=== PATIENT | female | born 1990 | race African-American/Black ===

== ENCOUNTER 2016-10-30 08:14 | Emergency (ER) | payer MEDICAID, OTHER ==
[~2016-10-30] VITALS: Ht 182.9 cm; Wt 131.0 kg
[2016-10-30 09:12] LABS: GLUCOSE URINE NEGATIVE (NEGATIVE); KETONES URINE TRACE (NEGATIVE); LEUKOCYTE ESTERASE URINE 3+ (NEGATIVE); NITRITE URINE NEGATIVE (NEGATIVE); OCCULT BLOOD URINE 2+ (NEGATIVE); PH URINE 6.5 (4.5-8.0); PROTEIN URINE 3+ (NEGATIVE); SPECIFIC GRAVITY URINE 1.025 (1.005-1.030)
[2016-10-30] MEDS ORDERED: KETOROLAC 60MG/2ML VIAL IM ONE (09:15)
[2016-10-30 09:23] LABS: CLARITY URINE TURBID (CLEAR); COLOR URINE YELLOW (YELLOW)
[2016-10-30 09:24] LABS: WBC URINE TNTC /hpf (0-2)
[2016-10-30 09:26] LABS: SQUAMOUS EPITHELIAL CELL URINE 1+ /lpf (RARE/1+)
[2016-10-30 09:27] LABS: BACTERIA URINE TRACE
[2016-10-30 09:37] LABS: *AMPHETAMINES SCREEN URINE NEGATIVE (NEGATIVE); *BARBITURATES SCREEN URINE NEGATIVE (NEGATIVE); *BENZODIAZEPINES SCREEN URINE NEGATIVE (NEGATIVE); *COCAINE SCREEN URINE NEGATIVE (NEGATIVE); ECSTASY MDMA SCREEN URINE NEGATIVE (NEGATIVE); METHADONE URINE SCREEN NEGATIVE (NEGATIVE); OPIATES URINE SCREEN NEGATIVE (NEGATIVE); PHENCYCLIDINE URINE SCREEN NEGATIVE (NEGATIVE)
[2016-10-30] MEDS ORDERED: CEFTRIAXONE SODIUM 1 G/VIAL IM ONE (10:00)
[2016-10-30] MEDS ORDERED: LIDOCAINE HCL 1% 20ML VIAL (Pyxis) INJ MC ONE (10:00)
[2016-10-30 10:11] LABS: CANNABINOID URINE SCREEN PRESUMTIVE POSITIVE (NEGATIVE)
[2016-10-30 11:01] VITALS: BP 124/67
== END 2016-10-30 11:02 | disposition home or self-care (01) ==
LOC: ER 09:10
DX: M54.5 Low back pain (principal); N39.0 Urinary tract infection, site not specified; E66.01 Morbid (severe) obesity due to excess calories; H10.32 Unspecified acute conjunctivitis, left eye; Z68.38 Body mass index [BMI] 38.0-38.9, adult; F17.200 Nicotine dependence, unspecified, uncomplicated; G89.29 Other chronic pain
CPT/HCPCS: 80305; 81001; 81025; 96372; 99284; J0696; J1885; J3490

== ENCOUNTER 2016-11-07 02:24 | Emergency (ER) | payer OTHER ==
[~2016-11-07] VITALS: Ht 182.9 cm; Wt 129.0 kg
[2016-11-07 04:00] VITALS: BP 104/75
[2016-11-07 06:07] LABS: CLARITY URINE CLEAR (CLEAR); COLOR URINE ORANGE (YELLOW); GLUCOSE URINE NEGATIVE (NEGATIVE); KETONES URINE NEGATIVE (NEGATIVE); LEUKOCYTE ESTERASE URINE 3+ (NEGATIVE); NITRITE URINE POSITIVE (NEGATIVE); OCCULT BLOOD URINE NEGATIVE (NEGATIVE); PROTEIN URINE 1+ (NEGATIVE); SPECIFIC GRAVITY URINE 1.024 (1.005-1.030)
[2016-11-07 06:30] LABS: SQUAMOUS EPITHELIAL CELL URINE 1+ /lpf (RARE/1+)
[2016-11-07 06:34] LABS: BACTERIA URINE 2+
[2016-11-07] MEDS ORDERED: ACETAMINOPHEN 650MG/20.3ML UDC PO ONE (07:00)
== END 2016-11-07 07:06 | disposition home or self-care (01) ==
LOC: ER 03:52
DX: N76.0 Acute vaginitis (principal); N89.8 Other specified noninflammatory disorders of vagina; M54.5 Low back pain; E66.9 Obesity, unspecified; F17.200 Nicotine dependence, unspecified, uncomplicated
CPT/HCPCS: 81001; 81025; 99283; Z7610

== ENCOUNTER 2016-12-17 13:12 | Emergency (ER) | payer OTHER ==
[~2016-12-17] VITALS: Ht 182.9 cm; Wt 127.0 kg
[2016-12-17] MEDS ORDERED: ACETAMINOPHEN WITH CODEINE 300/30MG TABLET PO ONE (14:45)
[2016-12-17 14:49] VITALS: BP 158/71
== END 2016-12-17 15:34 | disposition home or self-care (01) ==
LOC: ER 13:43
DX: H10.9 Unspecified conjunctivitis (principal)
CPT/HCPCS: 99283

== ENCOUNTER 2017-02-05 01:14 | Emergency (ER) | payer OTHER ==
[~2017-02-05] VITALS: Ht 182.9 cm; Wt 127.0 kg
[2017-02-05] MEDS ORDERED: ACETAMINOPHEN 325MG TABLET PO STA (10:43)
[2017-02-05 11:18] LABS: CHLORIDE 105 mEq/L (98-107)
[2017-02-05 11:19] LABS: BASOPHILS % 0.7 % (0.0-2.0); EOSINOPHILS % 1.9 % (0.0-5.0); HEMATOCRIT. 34.6 % (36.0-48.0); HEMOGLOBIN. 10.9 g/dL (12.0-16.0); LYMPHOCYTES % 25.1 % (20.0-50.0); MEAN CORPUSCULAR HEMOGLOBIN 22.9 pg (28.0-32.0); MEAN CORPUSCULAR VOLUME 72.3 fL (81.0-99.0); MEAN PLATELET VOLUME 9.2 fl (7.4-10.4); MONOCYTES % 4.2 % (2.0-8.0); NEUTROPHILS % 68.1 % (40.0-76.0); PLATELET 251 x1000/uL (130-400); RED BLOOD CELL COUNT 4.78 mill/uL (4.2-5.4); RED CELL DISTRIBUTION WIDTH 17.8 % (11.6-14.6)
[2017-02-05 11:20] LABS: PROTHROMBIN TIME 10.7 sec
[2017-02-05 11:26] LABS: CARBON DIOXIDE 29 mEq/L (21-32)
[2017-02-05 13:22] VITALS: BP 135/61
== END 2017-02-05 13:25 | disposition home or self-care (01) ==
LOC: ER 01:14
DX: K80.00 Calculus of gallbladder with acute cholecystitis without obstruction (principal); F17.200 Nicotine dependence, unspecified, uncomplicated; Z98.890 Other specified postprocedural states
CPT/HCPCS: 36415; 76705; 80053; 83690; 85025; 85610; 99285; Z7610

== ENCOUNTER 2017-02-11 22:51 | Emergency (ER) | payer OTHER ==
[~2017-02-11] VITALS: Ht 177.8 cm; Wt 136.0 kg
[2017-02-12] MEDS ORDERED: KETOROLAC 60MG/2ML VIAL IM ONE
[2017-02-12] MEDS ORDERED: PENICILLIN G BENZATHINE 1,200,000 UNITS/2ML SYR IM ONE
[2017-02-12 01:11] VITALS: BP 142/85
== END 2017-02-12 01:19 | disposition home or self-care (01) ==
LOC: ER 22:51
DX: J02.9 Acute pharyngitis, unspecified (principal); F17.200 Nicotine dependence, unspecified, uncomplicated; F12.10 Cannabis abuse, uncomplicated
CPT/HCPCS: 99283; J0561; J1885

== ENCOUNTER 2017-11-21 12:43 | Observation (INO) | payer OTHER ==
[~2017-11-21] VITALS: Ht 182.9 cm; Wt 158.8 kg
[2017-11-21] MEDS ORDERED: FERR325T6 PO (13:10)
[2017-11-21] MEDS ORDERED: PNV1TABL76 PO (13:10)
[2017-11-21] MEDS ORDERED: CALC-861 PO (13:11)
[2017-11-21] MEDS ORDERED: LACTATED RINGERS 1,000 ML IV SCH (14:00)
[2017-11-21 14:38] LABS: CLARITY URINE CLEAR (CLEAR); COLOR URINE YELLOW (YELLOW); KETONES URINE NEGATIVE (NEGATIVE); LEUKOCYTE ESTERASE URINE TRACE (NEGATIVE); NITRITE URINE NEGATIVE (NEGATIVE); OCCULT BLOOD URINE NEGATIVE (NEGATIVE); PROTEIN URINE NEGATIVE (NEGATIVE); SPECIFIC GRAVITY URINE 1.019 (1.005-1.030)
[2017-11-21 14:38] LABS: BASOPHILS % 0.7 % (0.0-2.0); LYMPHOCYTES % 17.7 % (20.0-50.0); MEAN CORPUSCULAR HEMOGLOBIN 24.7 pg (28.0-32.0); MEAN CORPUSCULAR VOLUME 76.3 fL (81.0-99.0); MEAN PLATELET VOLUME 9.3 fl (7.4-10.4); MONOCYTES % 3.7 % (2.0-8.0); NEUTROPHILS % 76.9 % (40.0-76.0); PLATELET 266 x1000/uL (130-400); RED BLOOD CELL COUNT 4.06 mill/uL (4.2-5.4); RED CELL DISTRIBUTION WIDTH 17.6 % (11.6-14.6)
[2017-11-21 14:51] LABS: D-DIMER 0.46 mg/L FEU (<0.50); PARTIAL THROMBOPLASTIN TIME 27.2 sec (23.4-31.0)
[2017-11-21 15:07] LABS: CHLORIDE 104 mEq/L (98-107)
[2017-11-21 15:12] LABS: CANNABINOID URINE SCREEN NEGATIVE (NEGATIVE); METHADONE URINE SCREEN NEGATIVE (NEGATIVE); OPIATES URINE SCREEN NEGATIVE (NEGATIVE); PHENCYCLIDINE URINE SCREEN NEGATIVE (NEGATIVE)
[2017-11-21 15:13] LABS: *BARBITURATES SCREEN URINE NEGATIVE (NEGATIVE); *BENZODIAZEPINES SCREEN URINE NEGATIVE (NEGATIVE); *COCAINE SCREEN URINE NEGATIVE (NEGATIVE)
[2017-11-21 15:17] LABS: *AMPHETAMINES SCREEN URINE PRESUMTIVE POSITIVE (NEGATIVE)
[2017-11-21] MEDS ORDERED: ACETAMINOPHEN 500MG TABLET PO NR (15:20)
[2017-11-21 15:42] LABS: RUBELLA IGG 87.7 IU/mL (4.99-10)
[2017-11-21 15:43] LABS: HEPATITIS B SURFACE ANTIGEN NEGATIVE
[2017-11-21] MEDS ORDERED: LABETALOL HCL 200MG TABLET PO SCH (16:00)
== END 2017-11-21 16:55 | disposition home or self-care (01) ==
LOC: EDSTATUS 12:46 → L&D 12:56
PROVIDERS: ADMIT Specialist; ATTEND Specialist
DX: O26.893 Other specified pregnancy related conditions, third trimester (principal); R10.30 Lower abdominal pain, unspecified; Z3A.30 30 weeks gestation of pregnancy
CPT/HCPCS: 36415; 76805; 76818; 80053; 80305; 80307; 81003; 84550; 85025; 85379; 85384; 85610; 85730; 86592; 86703; 86762; 86850; 86900; 86901; 87340; 99281; G0378; J7120; 96360; 96361

== ENCOUNTER 2018-03-17 06:04 | Emergency (ER) | payer OTHER ==
[~2018-03-17] VITALS: Ht 182.9 cm; Wt 143.0 kg
[~2018-03-17 06:04] MED LIST: CALC-861 PO; FERR325T6 PO; PNV1TABL76 PO
[2018-03-17] MEDS ORDERED: SODIUM CHLORIDE 0.9% 1,000 ML IV ONE (07:35)
[2018-03-17] MEDS ORDERED: KETOROLAC 30MG/ML VIAL IV STA (07:35)
[2018-03-17 09:59] LABS: BASOPHILS % 0.1 % (0.0-2.0); HEMATOCRIT. 30.4 % (36.0-48.0); HEMOGLOBIN. 9.6 g/dL (12.0-16.0); LYMPHOCYTES % 33.1 % (20.0-50.0); MEAN CORPUSCULAR VOLUME 75.6 fL (81.0-99.0); MEAN PLATELET VOLUME 8.8 fl (7.4-10.4); MONOCYTES % 4.9 % (2.0-8.0); NEUTROPHILS % 58.9 % (40.0-76.0); PLATELET 292 x1000/uL (130-400); RED BLOOD CELL COUNT 4.02 mill/uL (4.2-5.4); RED CELL DISTRIBUTION WIDTH 18.5 % (11.6-14.6)
[2018-03-17 10:03] LABS: CHLORIDE 107 mEq/L (98-107)
[2018-03-17 10:06] LABS: PROTHROMBIN TIME 10.7 sec (9.4-11.6)
[2018-03-17 10:10] LABS: ETHANOL BLOOD < 10 mg/dL
[2018-03-17 10:20] LABS: HCG SCREEN NEGATIVE
[2018-03-17 13:13] LABS: CLARITY URINE CLEAR (CLEAR); COLOR URINE YELLOW (YELLOW); KETONES URINE TRACE (NEGATIVE); LEUKOCYTE ESTERASE URINE NEGATIVE (NEGATIVE); NITRITE URINE NEGATIVE (NEGATIVE); OCCULT BLOOD URINE NEGATIVE (NEGATIVE); PROTEIN URINE NEGATIVE (NEGATIVE); UROBILINOGEN URINE 0.2 E.U./dL (0.2-1.0)
[2018-03-17 13:30] VITALS: BP 141/74
[2018-03-17 15:46] LABS: *BENZODIAZEPINES SCREEN URINE NEGATIVE (NEGATIVE); *COCAINE SCREEN URINE NEGATIVE (NEGATIVE)
[2018-03-17 15:47] LABS: CANNABINOID URINE SCREEN NEGATIVE (NEGATIVE); METHADONE URINE SCREEN NEGATIVE (NEGATIVE); OPIATES URINE SCREEN NEGATIVE (NEGATIVE); PHENCYCLIDINE URINE SCREEN NEGATIVE (NEGATIVE)
[2018-03-17 15:48] LABS: *BARBITURATES SCREEN URINE NEGATIVE (NEGATIVE)
[2018-03-17 15:55] LABS: *AMPHETAMINES SCREEN URINE PRESUMTIVE POSITIVE (NEGATIVE)
[2018-03-20 07:16] LABS: CHLAMYDIA TRACHOMATIS NAA Negative (Negative); NEISSERIA GONORRHOEAE NAA Negative (Negative)
== END 2018-03-17 15:06 | disposition home or self-care (01) ==
LOC: ER 07:37
DX: R10.30 Lower abdominal pain, unspecified (principal); N20.0 Calculus of kidney; M54.5 Low back pain; F17.200 Nicotine dependence, unspecified, uncomplicated; Z98.890 Other specified postprocedural states; Z79.899 Other long term (current) drug therapy
CPT/HCPCS: 36415; 74176; 76830; 76856; 80053; 80305; 81003; 83690; 84703; 85025; 85610; 87210; 87491; 87591; 99285; G0482; J7030; Z7610

== ENCOUNTER 2018-03-17 14:20 | Emergency (ER) | payer OTHER ==
[~2018-03-17] VITALS: Ht 205.7 cm; Wt 143.0 kg
[2018-03-17 14:33] VITALS: BP 131/74
== END 2018-03-17 20:32 | disposition left against medical advice (07) ==
LOC: ER 14:54
DX: R10.30 Lower abdominal pain, unspecified (principal); K08.89 Other specified disorders of teeth and supporting structures; M54.9 Dorsalgia, unspecified; F17.200 Nicotine dependence, unspecified, uncomplicated; Z98.890 Other specified postprocedural states
CPT/HCPCS: 99281

== ENCOUNTER 2018-12-13 11:53 | Emergency (ER) | payer OTHER ==
[~2018-12-13] VITALS: Ht 182.9 cm; Wt 127.0 kg
[2018-12-13 16:24] LABS: CLARITY URINE CLOUDY (CLEAR); COLOR URINE YELLOW (YELLOW); KETONES URINE NEGATIVE (NEGATIVE); LEUKOCYTE ESTERASE URINE 3+ (NEGATIVE); NITRITE URINE NEGATIVE (NEGATIVE); OCCULT BLOOD URINE NEGATIVE (NEGATIVE); PH URINE 6.5 (4.5-8.0); PROTEIN URINE NEGATIVE (NEGATIVE); SPECIFIC GRAVITY URINE 1.019 (1.005-1.030); UROBILINOGEN URINE 0.2 E.U./dL (0.2-1.0)
[2018-12-13] MEDS: KETOROLAC 60MG/2ML VIAL IM ONE (16:26)
[2018-12-13 16:48] LABS: *BARBITURATES SCREEN URINE NEGATIVE (NEGATIVE)
[2018-12-13 16:49] LABS: *AMPHETAMINES SCREEN URINE NEGATIVE (NEGATIVE); *BENZODIAZEPINES SCREEN URINE NEGATIVE (NEGATIVE); *COCAINE SCREEN URINE NEGATIVE (NEGATIVE); METHADONE URINE SCREEN NEGATIVE (NEGATIVE); OPIATES URINE SCREEN NEGATIVE (NEGATIVE); PHENCYCLIDINE URINE SCREEN NEGATIVE (NEGATIVE)
[2018-12-13 16:50] LABS: CANNABINOID URINE SCREEN NEGATIVE (NEGATIVE)
[2018-12-13 17:43] VITALS: BP 138/72
== END 2018-12-13 17:45 | disposition home or self-care (01) ==
LOC: ER 11:53
DX: R10.2 Pelvic and perineal pain (principal); N83.209 Unspecified ovarian cyst, unspecified side; N39.0 Urinary tract infection, site not specified; E66.8 Other obesity; F17.200 Nicotine dependence, unspecified, uncomplicated; Z98.890 Other specified postprocedural states; Z79.899 Other long term (current) drug therapy
CPT/HCPCS: 76830; 76856; 80305; 81003; 81025; 96372; 99284; J1885

== ENCOUNTER 2020-12-23 19:16 | Emergency (ER) | payer MEDICAID, OTHER ==
[~2020-12-23] VITALS: Ht 182.9 cm; Wt 127.0 kg
[2020-12-23] MEDS ORDERED: KETOROLAC 30MG/ML VIAL IV ONE (20:00)
[2020-12-23] MEDS ORDERED: ACETAMINOPHEN 325MG TABLET PO ONE (20:00)
[2020-12-23] MEDS ORDERED: DEXAMETHASONE 10 MG/ML VIAL IV ONE (20:00)
[2020-12-23 20:39] VITALS: BP 160/80
[2020-12-23] MEDS ORDERED: PENI500T MT ×2 (21:06)
[2020-12-23] MEDS ORDERED: PENICILLIN V POTASSIUM 250MG TABLET PO SCH (21:15)
[2020-12-23] MEDS ORDERED: PENICILLIN G BENZATHINE 2,400,000 UNITS/4ML SYR IM ONE (21:30)
== END 2020-12-23 22:43 | disposition home or self-care (01) ==
LOC: ER 19:16
DX: J02.0 Streptococcal pharyngitis (principal); R03.0 Elevated blood-pressure reading, without diagnosis of hypertension
CPT/HCPCS: 87430; 96372; 96374; 96375; 99284; J0561; J1100; J1885

== ENCOUNTER 2022-01-16 18:36 | Emergency (ER) | payer MEDICAID ==
[~2022-01-16] VITALS: Ht 182.9 cm; Wt 127.0 kg
[~2022-01-16 18:36] MED LIST changes: +PENI500T MT
[2022-01-16 18:41] VITALS: BP 196/136
[2022-01-17] MEDS ORDERED: AMOX1TAB16 PO (08:21)
[2022-01-17] MEDS ORDERED: TOPUD PO (08:21)
== END 2022-01-16 23:35 | disposition left against medical advice (07) ==
LOC: ER 18:36
DX: Z53.21 Procedure and treatment not carried out due to patient leaving prior to being seen by health care provider (principal)

== ENCOUNTER 2022-01-17 04:37 | Emergency (ER) | payer MEDICAID ==
[~2022-01-17] VITALS: Ht 172.7 cm; Wt 370.0 kg
[2022-01-17] MEDS ORDERED: KETOROLAC 30MG/ML VIAL IV STA (06:10)
[2022-01-17] MEDS ORDERED: SODIUM CHLORIDE 0.9% 1,000 ML IV ONE (06:15)
[2022-01-17 07:02] LABS: BASOPHILS % 0.1 % (0.0-2.0); EOSINOPHILS % 0.1 % (0.0-5.0); HEMATOCRIT. 26.5 % (36.0-48.0); HEMOGLOBIN. 7.4 g/dL (12.0-16.0); LYMPHOCYTES % 10.1 % (20.0-50.0); MEAN CORPUSCULAR VOLUME 53.6 fL (81.0-99.0); MEAN PLATELET VOLUME 9.6 fl (7.4-10.4); NEUTROPHILS % 84.7 % (40.0-76.0); PLATELET 404 x1000/uL (130-400); RED BLOOD CELL COUNT 4.95 mill/uL (4.2-5.4); RED CELL DISTRIBUTION WIDTH 21.2 % (11.6-14.6)
[2022-01-17 07:10] LABS: CHLORIDE 105 mEq/L (98-107)
[2022-01-17 07:12] LABS: HCG SCREEN NEGATIVE
[2022-01-17] MEDS ORDERED: DEXAMETHASONE 10 MG/ML VIAL IV ONE (08:15)
[2022-01-17] MEDS ORDERED: TOPUD PO (08:21)
[2022-01-17] MEDS ORDERED: AMOX1TAB16 PO (08:21)
[2022-01-17 09:01] LABS: PLATELET ESTIMATE SLIGHTLY INCREASED
[2022-01-17 10:23] VITALS: BP 122/63
== END 2022-01-17 10:24 | disposition home or self-care (01) ==
LOC: ER 04:37
DX: J02.0 Streptococcal pharyngitis (principal); Z20.822 Contact with and (suspected) exposure to COVID-19; D50.9 Iron deficiency anemia, unspecified
CPT/HCPCS: 36415; 70490; 80053; 84703; 85025; 87426; 87430; 96361; 96374; 96375; 99284; C9803; J1100; J1885; J7030

== ENCOUNTER 2022-04-21 02:29 | Emergency (ER) | payer MEDICAID ==
[~2022-04-21] VITALS: Ht 170.2 cm; Wt 91.0 kg
[~2022-04-21 02:29] MED LIST changes: +AMOX1TAB16 PO; +TOPUD PO
[2022-04-21 02:32] VITALS: BP 130/78
[2022-04-21] MEDS ORDERED: METHYLPREDNISOLONE SOD SUCC 125 MG/2 ML VIAL IM STA (04:36)
[2022-04-21] MEDS ORDERED: KETOROLAC 60MG/2ML VIAL IM STA (04:36)
[2022-04-21] MEDS ORDERED: PENICILLIN G BENZATHINE 1,200,000 UNITS/2ML SYR IM STA (04:36)
[2022-04-21 05:55] LABS: HCG SCREEN NEGATIVE
[2022-04-21] MEDS ORDERED: AMOX1TAB16 PO (06:04)
[2022-04-21] MEDS ORDERED: IBUP-2029 PO (06:04)
== END 2022-04-21 06:15 | disposition home or self-care (01) ==
LOC: ER 02:56
DX: J02.9 Acute pharyngitis, unspecified (principal); Z98.890 Other specified postprocedural states; R11.10 Vomiting, unspecified
CPT/HCPCS: 81025; 84703; 87070; 87430; 96372; 99284; J0561; J1885; J2930

== ENCOUNTER 2022-05-24 09:34 | Emergency (ER) | payer MEDICAID ==
[~2022-05-24] VITALS: Ht 177.8 cm; Wt 90.0 kg
[~2022-05-24 09:34] MED LIST changes: +IBUP-2029 PO
[2022-05-24 09:50] VITALS: BP 144/52
[2022-05-24] MEDS ORDERED: ACETAMINOPHEN 325MG TABLET PO ONE (12:45)
[2022-05-24 12:57] LABS: CLARITY URINE CLOUDY (CLEAR); COLOR URINE YELLOW (YELLOW); KETONES URINE NEGATIVE (NEGATIVE); LEUKOCYTE ESTERASE URINE 3+ (NEGATIVE); NITRITE URINE POSITIVE (NEGATIVE); OCCULT BLOOD URINE 1+ (NEGATIVE); PH URINE 8.5 (4.5-8.0); PROTEIN URINE 1+ (NEGATIVE); SPECIFIC GRAVITY URINE 1.018 (1.005-1.030)
[2022-05-24] MEDS ORDERED: CEPH500T MT (14:27)
[2022-05-24] MEDS ORDERED: METR-167 MT (14:27)
[2022-05-24] MEDS ORDERED: DIPH25CA83 MT (14:27)
[2022-05-24] MEDS ORDERED: DIF15 MT (14:32)
[2022-05-24] MEDS ORDERED: MICO14CR6 TP (14:32)
[2022-05-26 08:06] LABS: NEISSERIA GONORRHOEAE NAA Negative (Negative)
[2022-05-27] MEDS ORDERED: DIF15 MT (10:36)
[2022-05-27] MEDS ORDERED: LEVO750T68 MT (10:36)
== END 2022-05-24 15:31 | disposition home or self-care (01) ==
LOC: ER 09:34
DX: N39.0 Urinary tract infection, site not specified (principal); Z79.899 Other long term (current) drug therapy
CPT/HCPCS: 81003; 81025; 82962; 87077; 87086; 87186; 87210; 87491; 87591; 99284; Z7610; 99283

== ENCOUNTER 2022-08-16 06:32 | Emergency (ER) | payer MEDICAID ==
[~2022-08-16] VITALS: Ht 182.9 cm; Wt 137.0 kg
[~2022-08-16 06:32] MED LIST changes: +CEPH500T MT; +DIF15 MT; +DIPH25CA83 MT; +LEVO750T68 MT; +METR-167 MT; +MICO14CR6 TP
[2022-08-16] MEDS ORDERED: SILVER SULFADIAZINE 1% CREAM 50GM TOP STA (07:56)
[2022-08-16] MEDS ORDERED: HYDROCODONE/ACETAMINOPHEN 7.5/325MG TABLET PO ONE (08:00)
[2022-08-16] MEDS ORDERED: TETANUS, DIPHTHERIA, PERTUSSIS VAC/PF 0.5ML (>10YR OLD) IM ONE (08:00)
[2022-08-16 08:42] VITALS: BP 184/90
[2022-08-16] MEDS ORDERED: IBUP-2030 MT (09:46)
[2022-08-16] MEDS ORDERED: SILV50CR31 TP (09:46)
[2022-08-16] MEDS ORDERED: HYDR-4001 MT (09:46)
== END 2022-08-16 10:36 | disposition home or self-care (01) ==
LOC: ER 06:32
DX: T23.121A Burn of first degree of single right finger (nail) except thumb, initial encounter (principal); T31.0 Burns involving less than 10% of body surface; T79.9XXA Unspecified early complication of trauma, initial encounter; Z98.890 Other specified postprocedural states; Z79.899 Other long term (current) drug therapy; X08.8XXA Exposure to other specified smoke, fire and flames, initial encounter; Y93.89 Activity, other specified; Y92.89 Other specified places as the place of occurrence of the external cause; Y99.8 Other external cause status
CPT/HCPCS: 16000; 90471; 90715; 99283; Z7610

== ENCOUNTER 2022-08-20 17:04 | Emergency (ER) | payer MEDICAID ==
[~2022-08-20] VITALS: Ht 182.9 cm; Wt 136.0 kg
[~2022-08-20 17:04] MED LIST changes: +HYDR-4001 MT; +IBUP-2030 MT; +SILV50CR31 TP
[2022-08-20] MEDS: BACITRACIN ZINC OINT UDPKT TOP ONE (18:58)
[2022-08-20] MEDS: LIDOCAINE HCL/PF 1% 10 MG/ML 5ML VIAL INFIL ONE (18:58)
[2022-08-20] MEDS ORDERED: SULF1TAB48 MT (20:38)
[2022-08-20] MEDS: HYDROCODONE/ACETAMINOPHEN 5/325MG TABLET PO ONE (20:55)
[2022-08-20] MEDS: IBUPROFEN 600MG TABLET PO ONE (20:55)
[2022-08-20 21:13] VITALS: BP 131/64
[2022-08-20] MEDS ORDERED: IBUP-2029 MT (21:45)
== END 2022-08-20 21:14 | disposition home or self-care (01) ==
LOC: ER 17:04
DX: L03.011 Cellulitis of right finger (principal)
CPT/HCPCS: 10060; 99283; J3490

== ENCOUNTER 2022-08-25 15:36 | Emergency (ER) | payer MEDICAID ==
[~2022-08-25] VITALS: Ht 182.9 cm; Wt 137.0 kg
[~2022-08-25 15:36] MED LIST changes: +IBUP-2029 MT; +SULF1TAB48 MT
[2022-08-25 15:47] VITALS: BP 171/62
[2022-08-25] MEDS ORDERED: IBUPROFEN 600MG TABLET PO ONE (18:00)
== END 2022-08-25 18:46 | disposition home or self-care (01) ==
LOC: ER 15:36
DX: L03.011 Cellulitis of right finger (principal); Z98.890 Other specified postprocedural states; Z79.899 Other long term (current) drug therapy
CPT/HCPCS: 99281

== ENCOUNTER 2023-11-07 20:15 | Emergency (ER) | payer MEDICAID ==
[~2023-11-07] VITALS: Ht 182.9 cm; Wt 127.0 kg
[2023-11-07 20:23] VITALS: PULSE 110
[2023-11-07 20:31] VITALS: BP 160/98; RESP 18; TEMP 97.9; O2SAT 100
[2023-11-07] MEDS: BACITRACIN ZINC OINT UDPKT TOP ONE (20:45)
[2023-11-07] MEDS: LIDOCAINE HCL/PF 1% 10 MG/ML 5ML VIAL INFIL ONE (22:26)
[2023-11-07] MEDS ORDERED: AMOX1TAB16 MT (22:39)
[2023-11-07] MEDS ORDERED: TOPUD MT (23:33)
[2023-11-07] MEDS ORDERED: IBUP-2028 MT (23:33)
[2023-11-07] MEDS: HYDROCODONE/ACETAMINOPHEN 5/325MG TABLET PO ONE (23:40)
== END 2023-11-07 23:57 | disposition home or self-care (01) ==
LOC: ER 20:15
DX: L03.012 Cellulitis of left finger (principal); Z98.890 Other specified postprocedural states; Z79.899 Other long term (current) drug therapy
CPT/HCPCS: 99283; Z7610

== ENCOUNTER 2024-04-14 15:32 | Emergency (ER) | payer MEDICAID ==
[~2024-04-14] VITALS: Ht 185.4 cm; Wt 127.0 kg
[~2024-04-14 15:32] MED LIST changes: +AMOX1TAB16 MT; +IBUP-2028 MT; +TOPUD MT
[2024-04-14 15:36] VITALS: BP 152/96; PULSE 100; RESP 18; O2SAT 98
[2024-04-14] MEDS: TETRACAINE 0.5% OPHTH DROPS 4ML BOTHEYE ONE (21:50)
[2024-04-14] MEDS: FLUORESCEIN SODIUM 1MG/STRIP BOTHEYE ONE (21:50)
[2024-04-14 22:50] VITALS: TEMP 97.6
[2024-04-14] MEDS: ACETAMINOPHEN 325MG TABLET PO ONE (22:50)
[2024-04-14 23:40] LABS: CHLORIDE 106 mEq/L (98-107); POTASSIUM 4.2 mEq/L (3.5-5.1); SODIUM 138 mEq/L (136-145)
[2024-04-14 23:41] LABS: CALCIUM 9.3 mg/dL (8.7-10.4); CARBON DIOXIDE 28 mEq/L (21-32)
[2024-04-14 23:46] LABS: CREATININE 0.8 mg/dL (0.6-1.0); GLUCOSE 83 mg/dL (70-105); UREA NITROGEN BLOOD 8 mg/dL (9-23)
[2024-04-14 23:48] LABS: BASOPHILS % 0.3 % (0.0-2.0); HEMOGLOBIN. 9.5 g/dL (12.0-16.0); LYMPHOCYTES % 25.3 % (20.0-50.0); MEAN CORPUSCULAR HEMOGLOBIN 18.6 pg (28.0-32.0); MEAN CORPUSCULAR HGB CONC 29.8 g/dL (31.0-37.0); MEAN CORPUSCULAR VOLUME 62.5 fL (81.0-99.0); MEAN PLATELET VOLUME 8.9 fl (7.4-10.4); MONOCYTES % 5.7 % (2.0-8.0); NEUTROPHILS % 66.7 % (40.0-76.0); PLATELET 379 x1000/uL (130-400); RED BLOOD CELL COUNT 5.12 mill/uL (4.2-5.4); RED CELL DISTRIBUTION WIDTH 21.3 % (11.6-14.6); WHITE BLOOD COUNT 11.7 x1000/uL (4.5-11.0)
[2024-04-14 23:56] LABS: DIFFERENTIAL COMMENT 1
[2024-04-15 00:06] LABS: HCG SCREEN NEGATIVE
[2024-04-15] MEDS ORDERED: OFLO5DRO RIGHTEYE (02:48)
== END 2024-04-15 03:17 | disposition home or self-care (01) ==
LOC: ER 15:32
DX: H16.001 Unspecified corneal ulcer, right eye (principal); Z79.899 Other long term (current) drug therapy; Z98.890 Other specified postprocedural states
CPT/HCPCS: 36415; 80048; 84703; 85025; 99283